=== PATIENT | female | born 1975 | race Caucasian/White ===

== ENCOUNTER 2021-01-05 17:48 | Emergency (ER) | payer OTHER, SELFPAY ==
[2021-01-05 17:59] VITALS: BP 131/58; PULSE 60; RESP 16; TEMP 37.2; O2SAT 99
--- NOTE | 2021-01-05 18:01 | ED.GENADULT ---
HPI - General Adult General Chief complaint: Skin/Abscess/Foreign Body Stated complaint: Finger Lac Time Seen by Provider: 01/05/21 18:01 Source: patient and RN notes reviewed Mode of arrival: ambulatory Limitations: no limitations History of Present Illness HPI narrative: 45-year-old female presents with complaints of laceration to middle (3rd) finger on left hand, caused by a knife for the past 30 hours. Adrienne reports cutting bread on 01/05/2020 at approximately noon when she noticed a chunk of her finger missing due to bleeding. Increasing pain and bleeding today, last removed pressure dressing at 08:00. Pressure dressing applied and Ibuprofen (last today at 14:00) will little relief. Denies focal weakness, altered sensation. Denies numbness or tingling, or loss of mobility. Denies fever. Denies nausea, vomiting, and abdominal pain. Tolerating po intake well. No foreign body sensation. Dominant hand is the RIGHT HAND. Tetanus NOT up-to-date. LMP 2 weeks ago. Remains active. The patient reports she have not been diagnosed with COVID-19. The patient reports she received 2 imbookin ([place]) COVID-19 vaccines. The patient reports she is not waiting for the results of a COVID-19 lab test. The patient reports she do not have chills, weakness, or fatigue. The patient reports she do not have a new or worsening cough or shortness of breath. Denies chest pain. The patient reports she do not have any rhinorrhea, congestion, sore throat, loss of taste or smell, and diarrhea. Denies recent traveling. Denies concerns for COVID-19 or exposures. At this time, patient is not suspected of having COVID-19 Some parts of this dictation were generated by voice recognition software and may contain typographical and/or grammatical inaccuracies Related Data Home Medications Medication Instructions Recorded Confirmed cetirizine [Zyrtec] 10 mg PO DAILY 01/05/21 01/05/21 fluoxetine mg 01/05/21 Allergies Allergy/AdvReac Type Severity Reaction Status Date / Time tetracycline Allergy Unknown Verified 01/05/21 18:03 Review of Systems Review of Systems: Narrative: CONSTITUTIONAL: Denies fever, chills, sweats. EYES: Denies visual changes, redness, discharge. ENT: Denies rhinorrhea, congestion, sore throat, otalgia. CARDIOVASCULAR: Denies chest pain, palpitations, edema. RESPIRATORY: Denies dyspnea, wheezing, cough. GASTROINTESTINAL: Denies abdominal pain, nausea, vomiting, or diarrhea. SKIN: Denies rash or itching. Complains of laceration to middle (3rd) finger on LT hand. MUSCULOSKELETAL: Denies acute back pain, joint pain, or myalgia. NEUROLOGIC: Denies numbness or focal weakness. PSYCHIATRIC: Denies anxiety or depression. All systems reviewed & are unremarkable except as noted in HPI and below. [facility] Past Medical History Medical History (Updated 01/06/21 @ 00:00 by Background Daike) PMDD (premenstrual dysphoric disorder) Seasonal allergies Vaginal delivery X2 male-16 years-old, and female-13 year-old Surgical History Surgical History (Updated 01/05/21 @ 18:[address]) History of tonsillectomy Family History Family History (Updated 01/05/21 @ 18:[address]) Father Hypertension Mother Asthma Social History Social History (Updated 01/05/21 @ 18:[address]) Smoking status: Never smoker Tobacco type: cigarettes Second hand tobacco smoke exposure: No Alcohol intake: current Substance use: never Substance use type: does not use Living arrangements: with family Occupation/Education: occupation Gender identity (if verbalized by the patient): Female Sexual Orientation (if Verbalized by the Patient): Straight or Heterosexual Comments At time of signature, agree with nurse past medical, surgical, social, and family history. There is no relevant family history pertinent to the presenting complaint. Exam Narrative: Exam Narrative: GENERAL
[2021-01-05] MEDS: TETANUS,DIPHTHERIA,AC PERTUSSIS ADULT (0.5 ML) BOOSTRIX IM (18:24)
== END 2021-01-05 18:39 | disposition home or self-care (01) ==
PROVIDERS: Emergency Provider Nurse Practitioner Family
DX: S61.213A Laceration without foreign body of left middle finger without damage to nail, initial encounter (principal); W26.0XXA Contact with knife, initial encounter; Z23 Encounter for immunization
CPT/HCPCS: 90471; 90715; 99202; G0463